=== PATIENT | female | born 1965 | race American Indian/Alaskan Native ===

== ENCOUNTER 2017-05-02 13:31 | Inpatient (IN) | payer SELFPAY ==
--- NOTE | 2017-05-02 14:08 | ED PDOC ---
HPI:STROKE - Time Time: 13:54 - Historian Historian: Patient, EMS - Chief Complaint Chief Complaint: Weakness, Numbness - Onset Onset: Hours (0.5) - Timing Timing: Currently Symptomatic - Notes: Notes:: Barbara Pal is a 51 year old female with a past medical history of diabetes, Hepatitis C, and hypertension, who was brought to the ER by EMS with complaints of left sided weakness, numbness, and tingling, onset hour an hour prior to arrival. Patient reports noticing a droop in the left side of her body, and reports being a smoker; half a pack a day. NIHSS Stroke Scale - How Severe is the Stroke Level of Consciousness: 0=Alert LOC to Questions: 0=Both comments correct LOC to commands: 0=Obeys both correctly Best Gaze: 0=Normal Visual: 0=No visual loss Facial: 2=Partial (lower face paralysis) Motor Arm - Left: 2=Falls before 10 sec Motor Arm - Right: 0=No drift Motor Leg - Left: 2=Falls before 5 sec Motor Leg - Right: 2=Falls before 5 sec Limb Ataxia: 0=Absent Sensory: 0=Normal Best Language: 0=No aphasia Dysarthia: 0=Normal articulation Extinction & Inattention (Neglect): 0=Normal, no object Score: 8 Past Medical History Reviewed: Historical Data, Nursing Documentation, Vital Signs Vital Signs: Last Vital Signs Temp 97 F L 05/02/17 13:37 Pulse 64 05/02/17 13:37 Resp 18 05/02/17 13:37 BP 152/120 H 05/02/17 13:37 Pulse Ox 100 05/02/17 13:37 - Medical History PMH: Diabetes, Hepatitis (C), HTN - Surgical History Surgical History: No Surg Hx - Family History Family History: States: Unknown Family Hx - Social History Current smoker - smoking cessation education provided: Yes (0.5 ppd) Drugs: Opiates (heroin, last usage 2 days ago) - Home Medications Home Medications: Ambulatory Orders Medication Instructions Recorded Aspirin [Aspirin Chewable] 81 mg PO DAILY #30 chew 05/04/17 Atorvastatin [Lipitor] 40 mg PO DAILY #30 tab 05/04/17 Clopidogrel [Plavix] 75 mg PO DAILY #30 tab 05/04/17 cloNIDine [Catapres] 0.1 mg PO BID #60 tab 03/17/18 - Allergies Allergies/Adverse Reactions: Allergies Allergy/AdvReac Type Severity Reaction Status Date / Time No Known Allergies Allergy Verified 05/02/17 13:37 - Laboratory Results Result Diagrams: 05/04/17 06:34 05/04/17 06:34 - ECG ECG Rhythm: Positive for: Sinus Rhythm (normal) Rate: 64 O2 Sat by Pulse Oximetry: 100 (RA) Pulse Ox Interpretation: Normal Medical Decision Making Medical Decision Making: Time: 14:04 Plan: --Blood type and Screen --CT Head --Head/Neck CTA --EKG --CMP --Hemoglobin A1C --Lipid Panel --Troponin --CBC --Coag --CXR --IV Fluids 13:54 Patient was assessed, and code stroke was called. 14:09 Dr. Matute called, patient was in CT. 14:[address] were given by Dr. Kendrick. Called Dr. Matute with results, and discussed case. Head CT: FINDINGS: HEMORRHAGE: No intracranial hemorrhage. BRAIN: Trace periventricular lucency is appreciated primarily surrounding the frontal horns with white matter anatomy otherwise unremarkable above and below the tentorium. Continue function of early chronic microangiopathy. Clinically correlate for additional etiologies nonetheless. There is no mass effect or suspicious extra-axial fluid collection. The midline brain and appears unremarkable. VENTRICLES: Unremarkable. No hydrocephalus. CALVARIUM: Unremarkable. PARANASAL SINUSES: Unremarkable as visualized. No significant inflammatory changes. MASTOID AIR CELLS: Unremarkable as visualized. No inflammatory changes. OTHER FINDINGS: None. IMPRESSION: No evidence to suggest intracranial hemorrhage or acute or subacute brain infarction at this time. Limited bifrontal periventricular white matter lucency may reflect early chronic microangiopathy. Clinically correlate nevertheless as other etiologies are possible. MRI or CT may be useful for follow-up. Head/Neck CTA: FINDINGS: INTERNAL CEREBRAL ARTERIES: Unremarkable. The skull base, petrous, cavernous and supraclinoid segments are bilaterally widely patent. ANTERIOR CEREBRAL ARTERIES: Unremarkable. A1 and A2 segments are widely patent. Smaller distal branches unremarkable, as visualized. MIDDLE CEREBRAL ARTERIES: Unremarkable. M1 and M2 segments are widely patent. Perisylvian branches grossly symmetric. POSTERIOR CIRCULATION: Basilar Artery: Unremarkable. Distal Vertebral Arteries: Unremarkable. Posterior Cerebral Arteries: Unremarkable. Posterior Inferior Cerebellar Arteries: Unremarkable. NECK CTA: Common Carotid arteries: The bilateral common carotid appear widely patent from their origins to their bifurcations with no significant stenosis appreciated. Trace bilateral carotid bulbar atherosclerosis. No evidence to suggest common carotid artery dissection. Internal Carotid arteries: No significant stenosis is appreciated throughout the cervical internal carotid artery segments bilaterally and there is no evidence of dissection either. Trace proximal right ICA atherosclerosis identified. External Carotid arteries: Appear unremarkable bilaterally. Vertebral arteries: The bilateral vertebral arteries appear normal in caliber from their origins to their junction with the basilar artery. No significant stenosis or definite pattern of dissection. ANEURYSM/ VASCULAR MALFORMATIONS: None. OTHER FINDINGS: None. IMPRESSION: No significant stenosis or arterial occlusion identified in CT Angiography of the Brain and Neck. No aneurysm or arteriovascular malformation identified. Trace bilateral carotid bulbar atherosclerotic plaque is identified with trace extension into right ICA proximally. 15:00 Waiting on labs and workup to return. 15:05 Difficulty obtaining IV line due to line blowing. TPA was given. Before signing , all benefits and risks were explained to patient. Dr. Matute aware and agrees with plan. 15:30 Upon reevaluation, no change in patient's symptoms. 15:45 Upon reevaluation, patient feeling better. Reports still feeing tingling, but facial droop has improved. Dr. Matute reevaluated patient as well through video conference. Patient will be admitted to ICU. Dr. Matute requesting repeat CT in 12 hours. 15:50 Spoke to [employer] Dr. Donahue. Patient will be admitted. Scribe Attestation: Documented by Dedra Mello, acting as a scribe for Letty Lemos MD. Provider Scribe Attestation: All medical record entries made by the Scribe were at my direction and personally dictated by me. I have reviewed the chart and agree that the record accurately reflects my personal performance of the history, physical exam, medical decision making, and the department course for this patient. I have also personally directed, reviewed, and agree with the discharge instructions and disposition. Disposition - Disposition Condition: IMPROVED
[2017-05-02] MEDS ORDERED: Iodixanol 320 MG/ML 100 ML BOTTLE IV ONE (14:11)
[2017-05-02] MEDS ORDERED: Sodium Chloride 0.9% 100 ML ONE (14:12)
--- NOTE | 2017-05-02 14:51 | CT ---
PROCEDURE: CT HEAD WITHOUT CONTRAST. HISTORY: code stroke COMPARISON: None available. TECHNIQUE: Axial computed tomography images were obtained through the head/brain without intravenous contrast. Radiation dose: Total exam DLP = 931.29 MGy-cm. This CT exam was performed using one or more of the following dose reduction techniques: Automated exposure control, adjustment of the mA and/or kV according to patient size, and/or use of iterative reconstruction technique. FINDINGS: HEMORRHAGE: No intracranial hemorrhage. BRAIN: Trace periventricular lucency is appreciated primarily surrounding the frontal horns with white matter anatomy otherwise unremarkable above and below the tentorium. Continue function of early chronic microangiopathy. Clinically correlate for additional etiologies nonetheless. There is no mass effect or suspicious extra-axial fluid collection. The midline brain and appears unremarkable. VENTRICLES: Unremarkable. No hydrocephalus. CALVARIUM: Unremarkable. PARANASAL SINUSES: Unremarkable as visualized. No significant inflammatory changes. MASTOID AIR CELLS: Unremarkable as visualized. No inflammatory changes. OTHER FINDINGS: None. IMPRESSION: No evidence to suggest intracranial hemorrhage or acute or subacute brain infarction at this time. Limited bifrontal periventricular white matter lucency may reflect early chronic microangiopathy. Clinically correlate nevertheless as other etiologies are possible. MRI or CT may be useful for follow-up. Findings discussed with Dr. Lemos 05/02/2017 2:21 p.m..
--- NOTE | 2017-05-02 14:57 | CT ---
PROCEDURE: CT Angiography of the Brain. HISTORY: l weakness COMPARISON: None available. TECHNIQUE: CT angiography of the intracranial and cervical arteries was performed. Coronal and sagittal maximum intensity projection reformated images were generated. Contrast Dose: Visipaque 320, 99 cc Radiation dose:Total exam DLP = 718.18 mGy-cm. This CT exam was performed using one or more of the following dose reduction techniques: Automated exposure control, adjustment of the mA and/or kV according to patient size, and/or use of iterative reconstruction technique. FINDINGS: INTERNAL CEREBRAL ARTERIES: Unremarkable. The skull base, petrous, cavernous and supraclinoid segments are bilaterally widely patent. ANTERIOR CEREBRAL ARTERIES: Unremarkable. A1 and A2 segments are widely patent. Smaller distal branches unremarkable, as visualized. MIDDLE CEREBRAL ARTERIES: Unremarkable. M1 and M2 segments are widely patent. Perisylvian branches grossly symmetric. POSTERIOR CIRCULATION: Basilar Artery: Unremarkable. Distal Vertebral Arteries: Unremarkable. Posterior Cerebral Arteries: Unremarkable. Posterior Inferior Cerebellar Arteries: Unremarkable. NECK CTA: Common Carotid arteries: The bilateral common carotid appear widely patent from their origins to their bifurcations with no significant stenosis appreciated. Trace bilateral carotid bulbar atherosclerosis. No evidence to suggest common carotid artery dissection. Internal Carotid arteries: No significant stenosis is appreciated throughout the cervical internal carotid artery segments bilaterally and there is no evidence of dissection either. Trace proximal right ICA atherosclerosis identified. External Carotid arteries: Appear unremarkable bilaterally. Vertebral arteries: The bilateral vertebral arteries appear normal in caliber from their origins to their junction with the basilar artery. No significant stenosis or definite pattern of dissection. ANEURYSM/ VASCULAR MALFORMATIONS: None. OTHER FINDINGS: None. IMPRESSION: No significant stenosis or arterial occlusion identified in CT Angiography of the Brain and Neck. No aneurysm or arteriovascular malformation identified. Trace bilateral carotid bulbar atherosclerotic plaque is identified with trace extension into right ICA proximally.
[2017-05-02 15:10] LABS: BASO % 0.8 % (0.0-2.0); EOS # 0.1 K/uL (0.0-0.7); EOS % 2.5 % (0.0-4.0); LYMPH # 1.3 K/uL (1.0-4.3); LYMPH % 29.5 % (20.0-40.0); MEAN CELL VOLUME 92.4 fl (81.0-99.0); MEAN CORPUSCULAR HEMOGLOBIN 30.4 pg (27.0-31.0); MEAN CORPUSCULAR HGB CONC 32.9 g/dL (33.0-37.0); MEAN PLATELET VOLUME 8.7 fl (7.2-11.7); MONO # 0.3 K/uL (0.0-0.8); MONO % 6.9 % (0.0-10.0); NEUT # 2.8 K/uL (1.8-7.0); NEUT % 60.3 % (50.0-75.0); NRBC % 0.1 % (0.0-0.0); RBC 4.61 Mil/uL (3.80-5.20); RED CELL DISTRIBUTION WIDTH 15.6 % (11.5-14.5); WHITE BLOOD COUNT 4.6 K/uL (4.8-10.8)
[2017-05-02] MEDS: Sodium Chloride 0.9% 1,000 ML IV SCH (15:12)
[2017-05-02 15:20] LABS: ALB/GLOB RATIO 1.1 (1.0-2.1); ALBUMIN 3.8 g/dL (3.5-5.0); ALT/SGPT 58 U/L (9-52); AST/SGOT 52 U/L (14-36); BLOOD UREA NITROGEN 26 mg/dl (7-17); CALCIUM 9.2 mg/dL (8.4-10.2); GFR AFRICAN-AMERICAN > 60; GFR NON-AFRICAN AMERICAN > 60; HDL CHOLESTEROL 87 MG/DL (30-70)
--- NOTE | 2017-05-02 15:23 | RAD ---
HISTORY: Code Stroke COMPARISON: No prior. FINDINGS: LUNGS: No active pulmonary disease. PLEURA: No significant pleural effusion identified, no pneumothorax apparent. CARDIOVASCULAR: No radiographic findings to suggest acute or significant cardiovascular disease. OSSEOUS STRUCTURES: No significant abnormalities. VISUALIZED UPPER ABDOMEN: Normal. OTHER FINDINGS: None. IMPRESSION: No active disease.
[2017-05-02 15:24] LABS: INR 0.9 (0.9-1.2); PROTHROMBIN TIME 10.3 Seconds (9.8-13.1)
[2017-05-02 15:31] LABS: LDL CHOLESTEROL 45 mg/dL (0-129)
--- NOTE | 2017-05-02 17:16 | CP.CCUPN ---
CCU Subjective - Physician Review Subjective (Free Text): All Physician notes and Nursing notes reviewed: 51F admitted under Police custody for possession of illegal substances, admitted with acute onset Left sided weakness and facial asymmetry and paresthesias; underwent Code Stroke eval, deemed a candidate for thrombolytic therapy and started on TPA in the ER. Initial NIHSS= 8. Other Vitals and I/Os reviewed. BP 152/120, HR 64, Afebrile, 100% SPO2 RA ROS: No other pertinent negs or positives on 10+ system review, intubated. Allergies: NKDA Home Meds: noncompliant, unknown. PMSFH: IV Heroin abuse- last yesterday, 40 pk yr smoker, denies ETOH abuse. All other historical Nursing and physician documentation reviewed to date; no new pertinent info noted relevant to current medical problems. EXAM- HEENT: + gag, no icterus, no gaze preference, pupils equal and reactive, no icterus. NECK: No JVD, supple, carotids equal upstroke bilat/no bruits CHEST: decreased BS bases, otherwise clear bilat, no wheezes audible HEART: regular, distant, S1S2, no rubs or murmurs ABD: soft, obese, no distention, no tympany, no palp tenderness, BS hypoactive. EXT: No edema. No peripheral/ digital cyanosis, no calf tenderness or palpable cords, distal pulses intact and symmetrical. NEURO: minor left fascial drop, left hemiparesis; motor 3-4/5. SKIN: no rashes, warm and dry. CXR: clear (my interp). EKG: sinus 64/min, inferior ST depressions (my interp). LABS: WBC= 4.6 HGB= 14.0 PLTs= 199K INR= normal PTT= normal Na= 141 K= 4.2 CL= 101 HCO3= 26 BUN/Cr= 26/0.8 BS= 93 CXR, CTA/ CT Head results and film reviewed, no acute pathology. IMPRESSION / MAJOR PROBLEMS NOW: 1. CVA with left hemiparesis; r/o Hypertensive-Diabetic cerebrovascular disease versus vasospastic cerebrovascular disease from substance abuse. 2. Accelerated HTN 3. Heroin Substance abuse, r/o HIV disease 4. h/o Hep C PLAN: 1. Completion of remainder of TPA infusion. 2. Repeat CT Brain imaging in 12-24 hours. 3. Neurochecks, seizure precautions, HOB elevation. 4. Cautious BP control if sustained elevated MAP beyond 120. 5. Maintain normoglycemia 6. Watch for substance abuse withdrawal. 7. PT/OT eval. Time spent with this patient did not overlap with any other provider's medical or critical care time. Additionally the code selected for the services rendered in this note includes the time spent: talking to the patients family, associated physicians and reviewing hospital data/results not listed here which extended to a total of 35 minutes. CCU Objective - Vital Signs / Intake & Output Vital Signs (Last 4 hours): Vital Signs Temp Pulse Resp BP Pulse Ox 05/02/17 16:13 64 100 05/02/17 15:17 61 16 128/70 99 05/02/17 15:02 59 L 24 137/77 93 L 05/02/17 14:46 57 L 20 142/71 94 L 05/02/17 14:28 58 L 20 146/88 100 05/02/17 14:02 70 20 131/71 100 05/02/17 13:37 97 F L 64 18 152/120 H 100 Intake and Output (Last 8hrs): Intake & Output 05/02/17 05/02/17 05/02/17 06:59 14:59 22:59 Weight 181 lb 11.2 oz - Medications Active Medications: Active Medications Generic Name Dose Route Start Last Admin Trade Name Freq PRN Reason Stop Dose Admin Sodium Chloride 1,000 mls @ 100 mls/hr 05/02/17 14:15 05/02/17 15:12 Sodium Chloride 0.9% IV 100 mls/hr .Q10H RENAN Administration - Patient Studies Lab Studies: Lab Studies 05/02/17 05/02/17 05/02/17 Range/Units 15:58 15:06 15:06 WBC (4.8-10.8) K/uL RBC (3.80-5.20) Mil/uL Hgb (12.0-16.0) g/dL Hct (34.0-47.0) % MCV (81.0-99.0) fl MCH (27.0-31.0) pg MCHC (33.0-37.0) g/dL RDW (11.5-14.5) % Plt Count (130-400) K/uL MPV (7.2-11.7) fl Neut % (Auto) (50.0-75.0) % Lymph % (Auto) (20.0-40.0) % Converse % (Auto) (0.0-10.0) % Eos % (Auto) (0.0-4.0) % Baso % (Auto) (0.0-2.0) % Neut # (Auto) (1.8-7.0) K/uL Lymph # (Auto) (1.0-4.3) K/uL Converse # (Auto) (0.0-0.8) K/uL Eos # (Auto) (0.0-0.7) K/uL Baso # (Auto) (0.0-0.2) K/uL PT 10.3 (9.8-13.1) Seconds INR 0.9 (0.9-1.2) APTT 29.0 (25.6-37.1) Seconds Sodium (132-148) mmol/l Potassium (3.6-5.0) MMOL/L Chloride (98-107) mmol/L Carbon Dioxide (22-30) mmol/L Anion Gap (10-20) BUN (7-17) mg/dl Creatinine (0.7-1.2) mg/dl Est GFR ( Amer) Est GFR (Non-Af Amer) POC Glucose (mg/dL) 91 (65-110) mg/dL Random Glucose (65-105) mg/dL Calcium (8.4-10.2) mg/dL Total Bilirubin (0.2-1.3) mg/dl AST (14-36) U/L ALT (9-52) U/L Alkaline Phosphatase (38-126) U/L Troponin I (0.00-0.120) ng/mL Total Protein (6.3-8.2) G/DL Albumin (3.5-5.0) g/dL Globulin (2.2-3.9) gm/dL Albumin/Globulin Ratio (1.0-2.1) Triglycerides (0-149) mg/DL Cholesterol (0-199) mg/dL LDL Cholesterol Direct (0-129) mg/dL HDL Cholesterol (30-70) MG/DL Blood Type O POSITIVE Antibody Screen Negative BBK History Checked No verified bt 05/02/17 05/02/17 05/02/17 Range/Units 15:06 15:06 13:58 WBC 4.6 L (4.8-10.8) K/uL RBC 4.61 (3.80-5.20) Mil/uL Hgb 14.0 (12.0-16.0) g/dL Hct 42.6 (34.0-47.0) % MCV 92.4 (81.0-99.0) fl MCH 30.4 (27.0-31.0) pg MCHC 32.9 L (33.0-37.0) g/dL RDW 15.6 H (11.5-14.5) % Plt Count 199 (130-400) K/uL MPV 8.7 (7.2-11.7) fl Neut % (Auto) 60.3 (50.0-75.0) % Lymph % (Auto) 29.5 (20.0-40.0) % Converse % (Auto) 6.9 (0.0-10.0) % Eos % (Auto) 2.5 (0.0-4.0) % Baso % (Auto) 0.8 (0.0-2.0) % Neut # (Auto) 2.8 (1.8-7.0) K/uL Lymph # (Auto) 1.3 (1.0-4.3) K/uL Converse # (Auto) 0.3 (0.0-0.8) K/uL Eos # (Auto) 0.1 (0.0-0.7) K/uL Baso # (Auto) 0.0 (0.0-0.2) K/uL PT (9.8-13.1) Seconds INR (0.9-1.2) APTT (25.6-37.1) Seconds Sodium 141 (132-148) mmol/l Potassium 4.2 (3.6-5.0) MMOL/L Chloride 101 (98-107) mmol/L Carbon Dioxide 26 (22-30) mmol/L Anion Gap 18 (10-20) BUN 26 H (7-17) mg/dl Creatinine 0.8 (0.7-1.2) mg/dl Est GFR ( Amer) > 60 Est GFR (Non-Af Amer) > 60 POC Glucose (mg/dL) 94 (65-110) mg/dL Random Glucose 93 (65-105) mg/dL Calcium 9.2 (8.4-10.2) mg/dL Total Bilirubin 0.4 (0.2-1.3) mg/dl AST 52 H (14-36) U/L ALT 58 H (9-52) U/L Alkaline Phosphatase 132 H (38-126) U/L Troponin I 0.0140 (0.00-0.120) ng/mL Total Protein 7.3 (6.3-8.2) G/DL Albumin 3.8 (3.5-5.0) g/dL Globulin 3.5 (2.2-3.9) gm/dL Albumin/Globulin Ratio 1.1 (1.0-2.1) Triglycerides 47 (0-149) mg/DL Cholesterol 149 (0-199) mg/dL LDL Cholesterol Direct 45 (0-129) mg/dL HDL Cholesterol 87 H (30-70) MG/DL Blood Type Antibody Screen BBK History Checked Laboratory Results - last 24 hr 05/02/17 05/02/17 05/02/17 13:58 15:06 15:06 WBC 4.6 L RBC 4.61 Hgb 14.0 Hct 42.6 MCV 92.4 MCH 30.4 MCHC 32.9 L RDW 15.6 H Plt Count 199 MPV 8.7 Neut % (Auto) 60.3 Lymph % (Auto) 29.5 Converse % (Auto) 6.9 Eos % (Auto) 2.5 Baso % (Auto) 0.8 Neut # (Auto) 2.8 Lymph # (Auto) 1.3 Converse # (Auto) 0.3 Eos # (Auto) 0.1 Baso # (Auto) 0.0 PT INR APTT Sodium 141 Potassium 4.2 Chloride 101 Carbon Dioxide 26 Anion Gap 18 BUN 26 H Creatinine 0.8 Est GFR ( Amer) > 60 Est GFR (Non-Af Amer) > 60 POC Glucose (mg/dL) 94 Random Glucose 93 Calcium 9.2 Total Bilirubin 0.4 AST 52 H ALT 58 H Alkaline Phosphatase 132 H Troponin I 0.0140 Total Protein 7.3 Albumin 3.8 Globulin 3.5 Albumin/Globulin Ratio 1.1 Triglycerides 47 Cholesterol 149 LDL Cholesterol Direct 45 HDL Cholesterol 87 H Blood Type Antibody Screen BBK History Checked 05/02/17 05/02/17 05/02/17 15:06 15:06 15:58 WBC RBC Hgb Hct MCV MCH MCHC RDW Plt Count MPV Neut % (Auto) Lymph % (Auto) Converse % (Auto) Eos % (Auto) Baso % (Auto) Neut # (Auto) Lymph # (Auto) Converse # (Auto) Eos # (Auto) Baso # (Auto) PT 10.3 INR 0.9 APTT 29.0 Sodium Potassium Chloride Carbon Dioxide Anion Gap BUN Creatinine Est GFR ( Amer) Est GFR (Non-Af Amer) POC Glucose (mg/dL) 91 Random Glucose Calcium Total Bilirubin AST ALT Alkaline Phosphatase Troponin I Total Protein Albumin Globulin Albumin/Globulin Ratio Triglycerides Cholesterol LDL Cholesterol Direct HDL Cholesterol Blood Type O POSITIVE Antibody Screen Negative BBK History Checked No verified bt EKG/Cardiology Studies: Cardiology / EKG Studies 05/02/17 14:04 ELECTROCARDIOGRAM Stat Comment: Mode Of Transportation: Reason For Exam: left weaknes Fingerstick Blood Sugar Results: 91 Review of Systems - Review of Systems All systems: reviewed and no additional remarkable complaints except (as above) Critical Care Progress Note - Ventilator Checklist Head of Bed 30 Degrees: Yes - Extremities/Vascular Does the Patient have a Central Venous Catheter?: No Does the Patient need a Central Venous Catheter?: No Does the Patient have a [place] Catheter?: No Does the Patient need a [place] Catheter?: No - Prophylaxis GI Prophylaxis GI: Not Indicated - Prophylaxis DVT Prophylaxis DVT: SCDs
--- NOTE | 2017-05-02 17:18 | CP.PCM.HP ---
History of Present Illness - History of Present Illness History of Present Illness: 51 yo female with history of DM2, HTN and Heroin abuse brought in under police custody because of left sided weakness and numbness and left facial droop. Code Stroke was called and neurologist, Dr Matute was consulted. TPA was given after which patient's facial droop has improved and some movement were observe on her left limbs. Present on Admission - Present on Admission Any Indicators Present on Admission: No History of DVT/PE: No History of Uncontrolled Diabetes: No Urinary Catheter: No Decubitus Ulcer Present: No Review of Systems - Review of Systems All systems: reviewed and no additional remarkable complaints except (aside from those mentioned above, 14 point system review were negative by me) Past Patient History - Tetanus Immunizations Tetanus Immunization: Unknown - Past Social History Smoking Status: Heavy Smoker > 10 Cigarettes Daily Alcohol: None (10 bags of Heroin a day; last shot was yesterday) Drugs: Opiates (heroin, last usage 2 days ago) - CARDIAC Hx Hypertension: Yes - ENDOCRINE/METABOLIC Hx Diabetes Mellitus Type 2: Yes - PSYCHIATRIC Hx Substance Use: Yes (herroine yesterday) - ANESTHESIA Hx Anesthesia: No Meds Allergies/Adverse Reactions: Allergies Allergy/AdvReac Type Severity Reaction Status Date / Time No Known Allergies Allergy Verified 05/02/17 13:37 Physical Exam - Constitutional Appears: No Acute Distress, Other (left sided weakness on both upper and lower limbs) - Head Exam Head Exam: ATRAUMATIC - Eye Exam Eye Exam: absent: Scleral icterus - ENT Exam ENT Exam: Mucous Membranes Moist - Neck Exam Neck exam: Negative for: Meningismus - Respiratory Exam Respiratory Exam: absent: Rales, Rhonchi, Wheezes, Respiratory Distress - Cardiovascular Exam Cardiovascular Exam: REGULAR RHYTHM, +S1, +S2 - GI/Abdominal Exam GI & Abdominal Exam: Soft. absent: Tenderness - Rectal Exam Rectal Exam: Deferred - Neurological Exam Neurological exam: Alert, Oriented x3 - Psychiatric Exam Psychiatric exam: Normal Affect - Skin Skin Exam: Dry, Intact Results - Vital Signs Recent Vital Signs: Last Vital Signs Temp 97 F L 05/02/17 13:37 Pulse 64 05/02/17 16:13 Resp 16 05/02/17 15:17 BP 128/70 05/02/17 15:17 Pulse Ox 100 05/02/17 16:13 - Labs Result Diagrams: 05/02/17 15:06 05/02/17 15:06 Labs: Laboratory Results - last 24 hr 05/02/17 05/02/17 05/02/17 13:58 15:06 15:06 WBC 4.6 L RBC 4.61 Hgb 14.0 Hct 42.6 MCV 92.4 MCH 30.4 MCHC 32.9 L RDW 15.6 H Plt Count 199 MPV 8.7 Neut % (Auto) 60.3 Lymph % (Auto) 29.5 [place] % (Auto) 6.9 Eos % (Auto) 2.5 Baso % (Auto) 0.8 Neut # (Auto) 2.8 Lymph # (Auto) 1.3 [place] # (Auto) 0.3 Eos # (Auto) 0.1 Baso # (Auto) 0.0 PT INR APTT Sodium 141 Potassium 4.2 Chloride 101 Carbon Dioxide 26 Anion Gap 18 BUN 26 H Creatinine 0.8 Est GFR ( Amer) > 60 Est GFR (Non-Af Amer) > 60 POC Glucose (mg/dL) 94 Random Glucose 93 Calcium 9.2 Total Bilirubin 0.4 AST 52 H ALT 58 H Alkaline Phosphatase 132 H Troponin I 0.0140 Total Protein 7.3 Albumin 3.8 Globulin 3.5 Albumin/Globulin Ratio 1.1 Triglycerides 47 Cholesterol 149 LDL Cholesterol Direct 45 HDL Cholesterol 87 H Blood Type Antibody Screen BBK History Checked 05/02/17 05/02/17 05/02/17 15:06 15:06 15:58 WBC RBC Hgb Hct MCV MCH MCHC RDW Plt Count MPV Neut % (Auto) Lymph % (Auto) [place] % (Auto) Eos % (Auto) Baso % (Auto) Neut # (Auto) Lymph # (Auto) [place] # (Auto) Eos # (Auto) Baso # (Auto) PT 10.3 INR 0.9 APTT 29.0 Sodium Potassium Chloride Carbon Dioxide Anion Gap BUN Creatinine Est GFR ( Amer) Est GFR (Non-Af Amer) POC Glucose (mg/dL) 91 Random Glucose Calcium Total Bilirubin AST ALT Alkaline Phosphatase Troponin I Total Protein Albumin Globulin Albumin/Globulin Ratio Triglycerides Cholesterol LDL Cholesterol Direct HDL Cholesterol Blood Type O POSITIVE Antibody Screen Negative BBK History Checked No verified bt Assessment & Plan - Assessment and Plan (Free Text) Assessment: 51 yo female with history of DM2, HTN and Heroin abuse brought in under police custody because of left sided weakness and numbness and left facial droop. Code Stroke was called and neurologist, Dr Matute was consulted. TPA was given after which patient's facial droop has improved and some movement were observe on her left limbs. 1. CVA post TPA infusion neuro consult with Dr Matute (called by ER) CT angio of head and neck: trace bilateral bulbar atherosclerotic plaque with trace extension in right ICA neurovascular consult with Dr Melton (called by ER) failed swallow screen 2. HTN BP controlled 3. Heroin Abuse Ativan 0.5mg IV q 4hrs prn 4. DVT prophylaxis venodyne boots while in bed
[2017-05-02 18:08] LABS: BARBITURATES, UR NEGATIVE (NEGATIVE)
[2017-05-02 18:26] LABS: BENZODIAZEPINES, UR NEGATIVE (NEGATIVE); OPIATES, UR POSITIVE (NEGATIVE); PHENCYCLIDINE, UR NEGATIVE (NEGATIVE)
[2017-05-02] MEDS: Insulin Regular 100 units/ml SC SCH (23:21)
--- NOTE | 2017-05-02 23:22 | CP.PCM.CON ---
History of Present Illness - History of Present Illness History of Present Illness: 51 yr old woman, inmate, who presented at 2 pm today with sudden onset left arm, face and leg numbness and weakness. She was brought to the ER, evaluated and found to have a normal CT head and normal coagulation parameters. She was evaluated with the stroke cart, found to have an NIH score of >7, and given TPA at 245. She has a past medical history of hypertension, DM, and is currently incarcerated. There is no history of prior stroke. PMH/PSH: as above FH/SH: 1/2 pack per day smoker all: nkda on exam: at 225 pm awake, but dysarthric. tongue deviate to the left. left facial droop. can name and repeat. motor: strength: left arm 0/5, left leg 0/5 sensory: decreased sensation left arm and leg right arm and leg are normal strength with no deficts in sensation. +2 dtr ul and ll bl. toes downgoing, no clonus gaitnot tested. Past Patient History - Past Social History Drugs: Opiates (heroin, last usage 2 days ago) - CARDIAC Hx Hypertension: Yes Meds Allergies/Adverse Reactions: Allergies Allergy/AdvReac Type Severity Reaction Status Date / Time No Known Allergies Allergy Verified 05/02/17 13:37 - Medications Medications: Current Medications Sodium Chloride (Sodium Chloride 0.9%) 1,000 mls @ 100 mls/hr IV .Q10H RENAN Last Admin: 05/02/17 15:12 Dose: 100 mls/hr Results - Vital Signs Recent Vital Signs: Last Vital Signs Temp 97 F L 05/02/17 13:37 Pulse 64 05/02/17 15:32 Resp 18 05/02/17 13:37 BP 152/120 H 05/02/17 13:37 Pulse Ox 100 05/02/17 15:32 - Labs Result Diagrams: 05/02/17 15:06 05/02/17 15:06 Labs: Laboratory Results - last 24 hr 05/02/17 05/02/17 05/02/17 13:58 15:06 15:06 WBC 4.6 L RBC 4.61 Hgb 14.0 Hct 42.6 MCV 92.4 MCH 30.4 MCHC 32.9 L RDW 15.6 H Plt Count 199 MPV 8.7 Neut % (Auto) 60.3 Lymph % (Auto) 29.5 [place] % (Auto) 6.9 Eos % (Auto) 2.5 Baso % (Auto) 0.8 Neut # (Auto) 2.8 Lymph # (Auto) 1.3 [place] # (Auto) 0.3 Eos # (Auto) 0.1 Baso # (Auto) 0.0 PT INR APTT Sodium 141 Potassium 4.2 Chloride 101 Carbon Dioxide 26 Anion Gap 18 BUN 26 H Creatinine 0.8 Est GFR ( Amer) > 60 Est GFR (Non-Af Amer) > 60 POC Glucose (mg/dL) 94 Random Glucose 93 Calcium 9.2 Total Bilirubin 0.4 AST 52 H ALT 58 H Alkaline Phosphatase 132 H Troponin I 0.0140 Total Protein 7.3 Albumin 3.8 Globulin 3.5 Albumin/Globulin Ratio 1.1 Triglycerides 47 Cholesterol 149 LDL Cholesterol Direct 45 HDL Cholesterol 87 H BBK History Checked 05/02/17 05/02/17 15:06 15:06 WBC RBC Hgb Hct MCV MCH MCHC RDW Plt Count MPV Neut % (Auto) Lymph % (Auto) [place] % (Auto) Eos % (Auto) Baso % (Auto) Neut # (Auto) Lymph # (Auto) [place] # (Auto) Eos # (Auto) Baso # (Auto) PT 10.3 INR 0.9 APTT 29.0 Sodium Potassium Chloride Carbon Dioxide Anion Gap BUN Creatinine Est GFR ( Amer) Est GFR (Non-Af Amer) POC Glucose (mg/dL) Random Glucose Calcium Total Bilirubin AST ALT Alkaline Phosphatase Troponin I Total Protein Albumin Globulin Albumin/Globulin Ratio Triglycerides Cholesterol LDL Cholesterol Direct HDL Cholesterol BBK History Checked No verified bt - Imaging and Cardiology CT scan - head Status: Image reviewed by me, Report reviewed by me (no acute sroke, no hemorrhage ) Assessment & Plan - Assessment and Plan (Free Text) Assessment: 51 yr old woman who has complete left plegia , right mca stroke, was given tpa within one hour of reported symptoms. plan: 1. admit to icu 2. no anticoagulants 3. dvt prophylaxis with venodynes 4. dysphagia evaluation, pt, st ot 5. lipid profile 6. hypercoagulable workup. 7. echo with bubble study 8. PLease control bp to normal parameters 9. repeat ct headin am. Dr. haskins
[2017-05-03] MEDS: Sodium Chloride 0.9% 1,000 ML IV SCH (04:00)
[2017-05-03] MEDS: Insulin Regular 100 units/ml SC SCH ×4 (07:00→22:04)
--- NOTE | 2017-05-03 09:10 | CP.PCM.PN ---
Subjective - Date & Time of Evaluation Date of Evaluation: 05/03/17 Time of Evaluation: 09:07 - Subjective Subjective: Ms. Pal was seen and examined at the bedside in ICU. She is alert, oriented. She denies any headache, blurred vision. She is able to answer all questions appropriately. She further claims of using 10 bags of heroin daily and last one was the other day. She is able to follow simple commands with left side weakness with very mild left facial droop. Her pupils are reactive to light accommodation. CTA showed a trace atherosclerosis in the carotid bulbar. There was no untoward events overnight. Objective - Vital Signs/Intake and Output Vital Signs (last 24 hours): Temp Pulse Resp BP Pulse Ox 98.5 F 65 20 150/85 96 05/03/17 08:00 05/03/17 08:00 05/03/17 08:00 05/03/17 08:00 05/03/17 08:00 Intake and Output: 05/03/17 05/03/17 06:59 18:59 Intake Total 800 100 Balance 800 100 - Medications Medications: Current Medications Aspirin (Ecotrin) 81 mg PO DAILY RENAN Clopidogrel Bisulfate (Plavix) 75 mg PO DAILY [facility] Sodium Chloride (Sodium Chloride 0.9%) 1,000 mls @ 100 mls/hr IV .Q10H RENAN Last Admin: 05/03/17 04:00 Dose: 100 mls/hr Insulin Human Regular (Humulin R) 0 units SC ACCU-CHECK RENAN PRN Reason: Protocol Last Admin: 05/03/17 07:00 Dose: Not Given Lorazepam (Ativan) 1 mg IVP Q4 PRN PRN Reason: Agitation Last Admin: 05/03/17 08:40 Dose: 1 mg Pantoprazole Sodium (Protonix Inj) 40 mg IVP DAILY [facility] Last Admin: 05/03/17 08:37 Dose: 40 mg - Labs Labs: 05/02/17 15:06 05/02/17 15:06 PT 10.3 Seconds (9.8-13.1) 05/02/17 15:06 INR 0.9 (0.9-1.2) 05/02/17 15:06 APTT 29.0 Seconds (25.6-37.1) 05/02/17 15:06 - Constitutional Appears: No Acute Distress - Head Exam Head Exam: NORMAL INSPECTION - Eye Exam Pupil Exam: PERRL - Neurological Exam Neurological Exam: Alert, Awake, Oriented x3 Neuro motor strength exam: Left Upper Extremity: 2/1, Right Upper Extremity: 5, Left Lower Extremity: 2/1, Right Lower Extremity: 5 Additional comments: She is alert, speech is clear, follows commands with left side weakness. Sensation is asymmetrical especially in the left. Assessment and Plan (1) Ischemic stroke Assessment & Plan: Case discussed with Dr. Matute, continue all current medical, physical, occupational, and speech therapies. Pending MRI of the brain without contrast, MRA of the head and neck, echocardiogram, hypercoagulability studies. Recommend to start aspirin 81 mg PO daily and Plavix 75 mg PO daily to start in am. Recommend blood pressure and glycemic control. Status: Acute
--- NOTE | 2017-05-03 09:23 | CP.PCM.PN ---
Subjective - Date & Time of Evaluation Date of Evaluation: 05/03/17 Time of Evaluation: 09:00 - Subjective Subjective: Pt states her left sided weakness is better facial droop resolved she passed swallowing test and tolerated PO intake denies ZAMORANO, no dizziness no CP no SOB denies abd pain no signs of opiate withdrawal Objective - Vital Signs/Intake and Output Vital Signs (last 24 hours): Temp Pulse Resp BP Pulse Ox 98.5 F 67 17 138/78 94 L 05/03/17 08:00 05/03/17 09:00 05/03/17 09:00 05/03/17 09:00 05/03/17 09:00 Intake and Output: 05/03/17 05/03/17 06:59 18:59 Intake Total 800 100 Balance 800 100 - Medications Medications: Current Medications Aspirin (Ecotrin) 81 mg PO DAILY RENAN Clopidogrel Bisulfate (Plavix) 75 mg PO DAILY [facility] Sodium Chloride (Sodium Chloride 0.9%) 1,000 mls @ 100 mls/hr IV .Q10H [facility] Last Admin: 05/03/17 04:00 Dose: 100 mls/hr Insulin Human Regular (Humulin R) 0 units SC ACCU-CHECK RENAN PRN Reason: Protocol Last Admin: 05/03/17 07:00 Dose: Not Given Lorazepam (Ativan) 1 mg IVP Q4 PRN PRN Reason: Agitation Last Admin: 05/03/17 08:40 Dose: 1 mg Pantoprazole Sodium (Protonix Inj) 40 mg IVP DAILY [facility] Last Admin: 05/03/17 08:37 Dose: 40 mg - Labs Labs: 05/02/17 15:06 05/02/17 15:06 PT 10.3 Seconds (9.8-13.1) 05/02/17 15:06 INR 0.9 (0.9-1.2) 05/02/17 15:06 APTT 29.0 Seconds (25.6-37.1) 05/02/17 15:06 - Constitutional Appears: No Acute Distress - Head Exam Head Exam: NORMAL INSPECTION, NORMOCEPHALIC - Eye Exam Eye Exam: EOMI, Normal appearance, PERRL Pupil Exam: NORMAL ACCOMODATION - ENT Exam ENT Exam: Mucous Membranes Moist, Normal External Ear Exam - Neck Exam Neck Exam: Full ROM. absent: Meningismus - Respiratory Exam Respiratory Exam: Rhonchi, NORMAL BREATHING PATTERN. absent: Wheezes, Respiratory Distress - Cardiovascular Exam Cardiovascular Exam: REGULAR RHYTHM, +S1, +S2 - GI/Abdominal Exam GI & Abdominal Exam: Soft, Normal Bowel Sounds. absent: Tenderness - Extremities Exam Extremities Exam: Normal Capillary Refill. absent: Calf Tenderness, Pedal Edema - Back Exam Back Exam: absent: CVA tenderness (L), CVA tenderness (R) - Neurological Exam Neurological Exam: Alert, Awake, Oriented x3 Neuro motor strength exam: Left Upper Extremity: 3, Right Upper Extremity: 5, Left Lower Extremity: 3, Right Lower Extremity: 5 - Psychiatric Exam Psychiatric exam: Flat Affect - Skin Skin Exam: Dry, Normal Color, Warm Assessment and Plan - Assessment and Plan (Free Text) Assessment: 51 yo female with history of DM2, HTN , Cocaine and Heroin abuse, was brought in under police custody because of left sided weakness and numbness and left facial droop. Code Stroke was called and neurologist, Dr Matute was consulted. TPA was given in the ED after which patient's facial droop has improved anf Left sided hemiplegia improved. 1. Acute CVA s/p TPA infusion CT of head - neg Neuro consulted - Dr Matute no ASA for now bec pt received TPA no statin ( LDL=45) PT /OT consult Speech consult rpt CT of brain as rec by Neuri MRI of brain ECHO CT angio of head and neck: trace bilateral bulbar atherosclerotic plaque with trace extension in right ICA 2. Trace bilateral bulbar atherosclerotic plaque with trace extension in right ICA seen on CTA Neurovascular consult with Dr Melton (called by ER) 3. HTN BP controlled 4. DM typre II accucheck with coverage [id number]=3.6 will cont to monitor as glucose normal atpresent 5. Heroin and Cocaine Abuse Ativan 0.5mg IV q 4hrs prn for withdrawal sxs no signs of withdrawal at prsent DVT prophylaxis venodyne boots while in bed as pt received TPA
[2017-05-03 09:33] LABS: BASO # 0.1 K/uL (0.0-0.2); BASO % 1.2 % (0.0-2.0); EOS # 0.1 K/uL (0.0-0.7); EOS % 2.9 % (0.0-4.0); LYMPH # 1.6 K/uL (1.0-4.3); LYMPH % 32.5 % (20.0-40.0); MEAN CELL VOLUME 92.4 fl (81.0-99.0); MEAN CORPUSCULAR HEMOGLOBIN 30.6 pg (27.0-31.0); MEAN CORPUSCULAR HGB CONC 33.1 g/dL (33.0-37.0); MEAN PLATELET VOLUME 8.7 fl (7.2-11.7); MONO # 0.2 K/uL (0.0-0.8); MONO % 4.6 % (0.0-10.0); NEUT # 2.8 K/uL (1.8-7.0); NEUT % 58.8 % (50.0-75.0); NRBC % 0.1 % (0.0-0.0); RBC 4.56 Mil/uL (3.80-5.20); RED CELL DISTRIBUTION WIDTH 15.4 % (11.5-14.5); WHITE BLOOD COUNT 4.8 K/uL (4.8-10.8)
[2017-05-03 10:00] LABS: LDL CHOLESTEROL 58 mg/dL (0-129)
[2017-05-03 10:03] LABS: BLOOD UREA NITROGEN 18 mg/dl (7-17); GFR AFRICAN-AMERICAN > 60; GFR NON-AFRICAN AMERICAN > 60; HDL CHOLESTEROL 74 MG/DL (30-70); T4 6.63 ug/dl (5.5-11.0)
[2017-05-03 10:17] LABS: T3 0.959 nmol/L (1.49-2.60)
--- NOTE | 2017-05-03 11:46 | CARD ---
APPROVED REPORT EXAM: Two-dimensional and M-mode echocardiogram with Doppler and color Doppler. Other Information Quality : GoodRhythm : NSR INDICATION CVA/TIA 2D DIMENSIONS IVSd1.24 (0.7-1.1cm)LVDd4.33 (3.9-5.9cm) LVOT Diameter2.07 (1.8-2.4cm)PWd1.16 (0.7-1.1cm) IVSs1.60 (0.8-1.2cm)LVDs2.74 (2.5-4.0cm) FS (%) 36.6 %PWs1.29 (0.8-1.2cm) M-Mode DIMENSIONS Left Atrium (MM)3.86 (2.5-4.0cm)IVSd1.19 (0.7-1.1cm) Aortic Root2.95 (2.2-3.7cm)LVDd5.29 (4.0-5.6cm) Aortic Cusp Exc.1.90 (1.5-2.0cm)PWd1.21 (0.7-1.1cm) IVSs1.85 cmFS (%) 53 % LVDs2.48 (2.0-3.8cm)PWs1.90 cm Mitral Valve MV E Xlcenpyr30.8cm/sMV DECEL [id number] A Yqu[place]oc88.7cm/s MV [id number]/A ratio1.0MVA (PHT)3.16cm2 TDI Lateral E' Peak V11.73cm/sMedial E' Peak V11.24cm/sE/Lateral E'8.1 E/Medial E'8.4 Pulmonary Valve PV Peak Xxpxikmc229.0cm/s LEFT VENTRICLE The left ventricle is normal size. There is mild concentric left ventricular hypertrophy. The left ventricular function is normal. The left ventricular ejection fraction is within the normal range. The Ejection Fraction is 65-70%. There is normal LV segmental wall motion. The left ventricular diastolic function is normal. RIGHT VENTRICLE The right ventricle is normal size. The right ventricular systolic function is normal. ATRIA The left atrium size is normal. The right atrium size is normal. AORTIC VALVE The aortic valve is normal in structure. No aortic regurgitation is present. There is no aortic valvular stenosis. MITRAL VALVE The mitral valve is normal in structure. There is no mitral valve stenosis. There is no mitral valve regurgitation noted. TRICUSPID VALVE The tricuspid valve is normal in structure. There is no tricuspid valve regurgitation noted. PULMONIC VALVE The pulmonary valve is normal in structure. There is no pulmonic valvular regurgitation. GREAT VESSELS The aortic root is normal in size. The IVC is normal in size and collapses >50% with inspiration. PERICARDIAL EFFUSION The pericardium appears normal. <Conclusion> The left ventricle is normal size. There is mild concentric left ventricular hypertrophy. The left ventricular function is normal. The left ventricular ejection fraction is within the normal range. The Ejection Fraction is 65-70%.
--- NOTE | 2017-05-03 11:55 | CARD ---
APPROVED REPORT EKG Measurement Heart [id number] <Conclusion> Normal sinus rhythm Normal ECG
--- NOTE | 2017-05-03 21:55 | CT ---
EXAM: CT Head Without Intravenous Contrast CLINICAL HISTORY: 51 years old, female; Signs and symptoms; Other: Ichemia; Stroke; Additional info: Ischemic stroke TECHNIQUE: Axial computed tomography images of the head/brain without intravenous contrast. All CT scans at this facility use one or more dose reduction techniques, viz.: automated exposure control; ma/kV adjustment per patient size (including targeted exams where dose is matched to indication; i.e. head); or iterative reconstruction technique. Coronal and sagittal reformatted images were created and reviewed. COMPARISON: CT - HEAD W/O (CODE STROKE) 2017-05-02 14:06 FINDINGS: Brain: Minimal atrophy. No intracranial hemorrhage. No mass. Minimal decreased attenuation within periventricular white matter. No definite edema. Ventricles: No hydrocephalus. Bones/joints: No acute fracture. Soft tissues: Unremarkable. Sinuses: No acute sinusitis. Mastoid air cells: No mastoid effusion. Orbits: Unremarkable as visualized. IMPRESSION: 1. Nonspecific white matter changes. Acute infarction may be CT occult within first 24 hours. If a focal deficit persists, consider followup CT or MRI for further evaluation. 2. Incidental/non-acute findings are described above.
[2017-05-04] MEDS: Insulin Regular 100 units/ml SC SCH ×2 (06:47→12:33)
[2017-05-04 07:32] LABS: HEMOGLOBIN 13.2 g/dL (12.0-16.0); MEAN CELL VOLUME 92.3 fl (81.0-99.0); MEAN CORPUSCULAR HEMOGLOBIN 30.8 pg (27.0-31.0); MEAN CORPUSCULAR HGB CONC 33.4 g/dL (33.0-37.0); RBC 4.28 Mil/uL (3.80-5.20); RED CELL DISTRIBUTION WIDTH 15.2 % (11.5-14.5); WHITE BLOOD COUNT 4.5 K/uL (4.8-10.8)
[2017-05-04 07:44] LABS: BLOOD UREA NITROGEN 15 mg/dl (7-17); CALCIUM 9.2 mg/dL (8.4-10.2); GFR AFRICAN-AMERICAN > 60; GFR NON-AFRICAN AMERICAN > 60
[2017-05-04 08:19] VITALS: RESP 20
[2017-05-04 16:26] VITALS: BP 163/77
[2017-05-04 16:31] VITALS: TEMP 98.5
--- NOTE | 2017-05-04 16:51 | CP.PCM.DIS ---
Provider - Provider Date of Admission: 05/02/17 16:03 Attending physician: Antoine Willoughby MD Primary care physician: none Consults: neuro consult PT /OT/ speech consult Time Spent in preparation of Discharge (in minutes): 20 Hospital Course - Lab Results Lab Results: Micro Results 05/02/17 07:59 Naris MRSA Culture (Admit) - Final MRSA NOT DETECTED Most Recent Lab Values WBC 4.5 K/uL (4.8-10.8) L 05/04/17 06:34 RBC 4.28 Mil/uL (3.80-5.20) 05/04/17 06:34 Hgb 13.2 g/dL (12.0-16.0) 05/04/17 06:34 Hct 39.5 % (34.0-47.0) 05/04/17 06:34 MCV 92.3 fl (81.0-99.0) 05/04/17 06:34 MCH 30.8 pg (27.0-31.0) 05/04/17 06:34 MCHC 33.4 g/dL (33.0-37.0) 05/04/17 06:34 RDW 15.2 % (11.5-14.5) H 05/04/17 06:34 Plt Count 190 K/uL (130-400) 05/04/17 06:34 MPV 8.7 fl (7.2-11.7) 05/03/17 09:15 Neut % (Auto) 58.8 % (50.0-75.0) 05/03/17 09:15 Lymph % (Auto) 32.5 % (20.0-40.0) 05/03/17 09:15 [place] % (Auto) 4.6 % (0.0-10.0) 05/03/17 09:15 Eos % (Auto) 2.9 % (0.0-4.0) 05/03/17 09:15 Baso % (Auto) 1.2 % (0.0-2.0) 05/03/17 09:15 Neut # (Auto) 2.8 K/uL (1.8-7.0) 05/03/17 09:15 Lymph # (Auto) 1.6 K/uL (1.0-4.3) 05/03/17 09:15 [place] # (Auto) 0.2 K/uL (0.0-0.8) 05/03/17 09:15 Eos # (Auto) 0.1 K/uL (0.0-0.7) 05/03/17 09:15 Baso # (Auto) 0.1 K/uL (0.0-0.2) 05/03/17 09:15 ESR 18 mm/hr (0-20) 05/03/17 09:15 PT 10.3 Seconds (9.8-13.1) 05/02/17 15:06 INR 0.9 (0.9-1.2) 05/02/17 15:06 APTT 29.0 Seconds (25.6-37.1) 05/02/17 15:06 Sodium 140 mmol/l (132-148) 05/04/17 06:34 Potassium 4.0 MMOL/L (3.6-5.0) 05/04/17 06:34 Chloride 100 mmol/L (98-107) 05/04/17 06:34 Carbon Dioxide 28 mmol/L (22-30) 05/04/17 06:34 Anion Gap 16 (10-20) 05/04/17 06:34 BUN 15 mg/dl (7-17) 05/04/17 06:34 Creatinine 0.8 mg/dl (0.7-1.2) 05/04/17 06:34 Est GFR ( Amer) > 60 05/04/17 06:34 Est GFR (Non-Af Amer) > 60 05/04/17 06:34 POC Glucose (mg/dL) 137 mg/dL (65-110) H 05/04/17 11:14 Random Glucose 157 mg/dL (65-105) H 05/04/17 06:34 Hemoglobin A1c 6.6 % (4.2-6.5) H 05/02/17 14:55 Calcium 9.2 mg/dL (8.4-10.2) 05/04/17 06:34 Total Bilirubin 0.4 mg/dl (0.2-1.3) 05/02/17 15:06 AST 52 U/L (14-36) H 05/02/17 15:06 ALT 58 U/L (9-52) H 05/02/17 15:06 Alkaline Phosphatase 132 U/L (38-126) H 05/02/17 15:06 Troponin I 0.0140 ng/mL (0.00-0.120) 05/02/17 15:06 C-React Prot High Sens 2.57 mg/L (1.00-3.00) 05/03/17 09:15 Total Protein 7.3 G/DL (6.3-8.2) 05/02/17 15:06 Albumin 3.8 g/dL (3.5-5.0) 05/02/17 15:06 Globulin 3.5 gm/dL (2.2-3.9) 05/02/17 15:06 Albumin/Globulin Ratio 1.1 (1.0-2.1) 05/02/17 15:06 Triglycerides 73 mg/DL (0-149) D 05/03/17 09:15 Cholesterol 155 mg/dL (0-199) 05/03/17 09:15 LDL Cholesterol Direct 58 mg/dL (0-129) 05/03/17 09:15 HDL Cholesterol 74 MG/DL (30-70) H 05/03/17 09:15 Vitamin B12 362 pg/mL (239-931) 05/03/17 09:15 25-OH Vitamin D Total 17.5 NG/ML (30.0-100.0) L 05/03/17 09:15 Thyroxine (T4) 6.63 ug/dl (5.5-11.0) 05/03/17 09:15 Total T3 0.959 nmol/L (1.49-2.60) L 05/03/17 09:15 TSH 3rd Generation 0.37 mIU/ML (0.46-4.68) L 05/03/17 09:15 Urine Opiates Screen Positive (NEGATIVE) H 05/02/17 17:20 Urine Methadone Screen Negative (NEGATIVE) 05/02/17 17:20 Ur Barbiturates Screen Negative (NEGATIVE) 05/02/17 17:20 Ur Phencyclidine Scrn Negative (NEGATIVE) 05/02/17 17:20 Ur Amphetamines Screen Negative (NEGATIVE) 05/02/17 17:20 U Benzodiazepines Scrn Negative (NEGATIVE) 05/02/17 17:20 U Oth Cocaine Metabols Positive (NEGATIVE) H 05/02/17 17:20 U Cannabinoids Screen Negative (NEGATIVE) 05/02/17 17:20 Blood Type O POSITIVE 05/02/17 15:06 Blood Type Confirm O POSITIVE 05/02/17 15:19 Antibody Screen Negative 05/02/17 15:06 BBK History Checked No verified bt 05/02/17 15:06 - Hospital Course Hospital Course: 51 yo female with history of DM2, HTN , Cocaine and Heroin abuse, was brought under police custody because of left sided weakness and numbness and left facial droop. Code Stroke was called and neurologist, Dr Matute was consulted.Ct head showed no acute bleed or stroke and t-PA was given in the ED after which patient's facial droop and Left sided hemiplegia improved. CTA head and neck showed only trace bulbar atherosclerotic plaques . Repeat CT head post t-PA showed no acute pathology. Patient refusing MRI, MRA and initially refusing PT Echo- wnl Discussed with neurologiest Dr. Matute who recommended to start ASa, plavix , Statin and PT . Patient at present neurologically improved , still with some left leg weakness( dragging her leg ) but able to walk with walker and without it. She was started on Ativan PRN for withdrawal symptoms since she admitted use of heroine 20 bags/ day. Also BP noted to be elevated so Clonidine 0.1 mg po BID was started but her BP still not well controlled 166/99 . Patient insisting to leave the hospital under police custody to solve her legal situation with the critical access hospital ,despite the fact that her BP is not well controlled and not medically cleared yet for discharge. Explained to patient all her test results, diagnosis, treatment plan ( including good BP control and PT )and she expresses understanding.Explained to patient that if her BP is not well controlled she is at higher risk for progression of stroke. Patient states that she will follow up with once she solves her legal problems. Prescriptions for ASa, Plavix, clonidine and Atorvastatin provided to patient . Walker as well provided for discharge by nurse classified advertising supervisor. Patient will leave AMA with police custody She is AAOx3 ,competent to make her own decisions. 1. Acute CVA s/p TPA infusion start ASa, Plavix, Atorvastatin Will need outpatient PT. Able to walk with and without walker . 2. Trace bilateral bulbar atherosclerotic plaque with trace extension in right ICA seen on CTA 3. HTN uncontrolled strated clonidine 4. DM type II [id number]=3.6 diet 5. Heroin and Cocaine Abuse Ativan 0.5mg IV q 4hrs prn for withdrawal sxs no signs of withdrawal at prsent Discharge Exam - Head Exam Head Exam: NORMAL INSPECTION, NORMOCEPHALIC - Eye Exam Eye Exam: EOMI, Normal appearance, PERRL Pupil Exam: NORMAL ACCOMODATION - ENT Exam ENT Exam: Mucous Membranes Moist, Normal Exam - Neck Exam Neck exam: Full Rom, Normal Inspection - Respiratory Exam Respiratory Exam: Clear to PA & Lateral, NORMAL BREATHING PATTERN. absent: Rhonchi, Wheezes, Respiratory Distress - Cardiovascular Exam Cardiovascular Exam: REGULAR RHYTHM, RRR, +S1, +S2. absent: JVD - GI/Abdominal Exam GI & Abdominal Exam: Normal Bowel Sounds, Soft. absent: Distended, Guarding, Rebound, Tenderness - Rectal Exam Rectal Exam: Deferred - Extremities Exam Extremities exam: normal capillary refill, normal inspection, pedal pulses present - Back Exam Back exam: NORMAL INSPECTION - Neurological Exam Neurological exam: Abnormal Gait, Alert, CN II-XII Intact, Oriented x3 Additional comments: left side weakness dragging her left foot - Psychiatric Exam Psychiatric exam: Normal Affect - Skin Skin Exam: Dry, Normal Color, Warm Discharge Plan - Discharge Medications Prescriptions: Aspirin [Aspirin Chewable] 81 mg PO DAILY #30 chew Atorvastatin [Lipitor] 40 mg PO DAILY #30 tab cloNIDine [Catapres] 0.1 mg PO BID #60 tab Clopidogrel [Plavix] 75 mg PO DAILY #30 tab - Follow Up Plan Condition: IMPROVED Disposition: AGAINST MEDICAL ADVICE Patient education suggested?: Yes Instructions: Stroke (DC), Drug Abuse and Drug Addiction (DC), Medicines After an Ischemic Stroke, Recovery After Stroke, Stroke Rehab Exercises Clinical Quality Measures - CQM - Stroke Antithrombotic Prescribed: Yes Anticoagulation Prescribed for Atrial Flutter, Atrial Fibrillation and History of:: Not Applicable Statin prescribed: Yes
[2017-05-06 00:14] VITALS: PULSE 64; O2SAT 100
== END 2017-05-04 17:39 | disposition home or self-care (01) | DRG 62 ==
LOC: H.ER 13:31 → H.ERHOLD 16:03 → H.ICU/CCU 17:44 → H.TEL 05-03 18:30
DX: I63.511 Cerebral infarction due to unspecified occlusion or stenosis of right middle cerebral artery (principal); G81.94 Hemiplegia, unspecified affecting left nondominant side; R29.810 Facial weakness; F11.10 Opioid abuse, uncomplicated; F14.10 Cocaine abuse, uncomplicated; I10 Essential (primary) hypertension; E11.9 Type 2 diabetes mellitus without complications; B19.20 Unspecified viral hepatitis C without hepatic coma; R29.708 NIHSS score 8; F17.210 Nicotine dependence, cigarettes, uncomplicated; Z91.19 Patient's noncompliance with other medical treatment and regimen; Z65.3 Problems related to other legal circumstances; Z79.02 Long term (current) use of antithrombotics/antiplatelets